=== PATIENT | female | born 1975 | race Caucasian/White ===

== ENCOUNTER 2016-08-04 14:55 | Inpatient (IN) | payer BC ==
[~2016-08-04] VITALS: Ht 167.6 cm; Wt 61.7 kg
[~2016-08-04 14:55] MED LIST: ADDERALL20 MG PO; ASPI325T6 PO; CELEBREX 200MG200 MG PO; COLACE 100100 MG/CAP PO; FERROUS SU325 MG/TAB PO; LEVAQUIN 5500 MG/TA1 PO; NORCO 325 MG-7.1 TAB PO; PRILOSEC 20MG20 MG PO; THERAGRAN1 TA1 PO
[2016-10-13] MEDS ORDERED: DESYREL DIVIDO150 M1 PO (09:40)
[2016-10-13] MEDS ORDERED: VENTOLIN0.09 MG IH (09:41)
[2016-10-13] MEDS ORDERED: NUVARING VAG RING VG (09:41)
[2016-10-24] VITALS (10 sets, daily range): BP systolic 89–105; BP diastolic 49–87; PULSE 48–75; TEMP 98–98.1
[2016-10-25 00:21] VITALS: BP 105/60; PULSE 58; TEMP 97.5
[2016-10-25 03:51] VITALS: BP 103/53; PULSE 67; TEMP 97.4
[2016-10-25 07:13] LABS: HEMATOCRIT 30.2 % (37.0-47.0); HEMOGLOBIN 10.1 g/dl (12.5-16.0)
[2016-10-25 07:45] VITALS: BP 94/56; PULSE 65; TEMP 98.3
[2016-10-25 11:36] VITALS: BP 94/58; PULSE 67; TEMP 97.7
[2016-10-25 16:07] VITALS: BP 101/58; PULSE 63; TEMP 97.9
[2016-10-25 19:50] VITALS: BP 106/64; PULSE 77; TEMP 98.7
[2016-10-26 00:09] VITALS: BP 95/56; PULSE 76; TEMP 98.3
[2016-10-26 04:22] VITALS: BP 95/59; PULSE 84; TEMP 98.8
[2016-10-26 06:47] LABS: HEMATOCRIT 29.4 % (37.0-47.0); HEMOGLOBIN 9.8 g/dl (12.5-16.0)
[2016-10-26 07:39] VITALS: BP 89/48; PULSE 78; TEMP 97.6
[2016-10-26 11:31] VITALS: BP 93/60; PULSE 72; TEMP 97.5
[2016-10-26 15:31] VITALS: BP 99/55; PULSE 77; TEMP 97.5
[2016-10-26 19:38] VITALS: BP 90/45; PULSE 55; TEMP 97.5
[2016-10-27 00:22] VITALS: BP 90/55; PULSE 64; TEMP 98.3
[2016-10-27 04:28] VITALS: BP 97/59; PULSE 67; TEMP 98.5
[2016-10-27] MEDS ORDERED: NORCO 325 MG-7.1 TAB PO (07:06)
[2016-10-27] MEDS ORDERED: CELEBREX 200MG200 MG PO (07:06)
[2016-10-27] MEDS ORDERED: ASPI325T6 PO (07:06)
[2016-10-27] MEDS ORDERED: ROXICODONE 55 MG/TAB PO (07:07)
[2016-10-27] MEDS ORDERED: TYLENOL 500MG500 MG PO (07:08)
[2016-10-27] MEDS ORDERED: COLACE 100100 MG/CAP PO (07:08)
[2016-10-27 07:51] VITALS: BP 107/61; PULSE 86; TEMP 99.1
[2016-10-27 11:36] VITALS: BP 97/59; PULSE 77; TEMP 98.2
== END 2016-10-27 15:49 | disposition home or self-care (01) | DRG 470 ==
LOC: JCC 10-24 07:30
PROVIDERS: Orthopaedic Surgery
PROC: 0SR90JA Replacement of Right Hip Joint with Synthetic Substitute, Uncemented, Open Approach (ICD-10-PCS; principal; 2016-10-24 12:15)
DX: M16.11 Unilateral primary osteoarthritis, right hip (principal)
CPT/HCPCS: A4315; A9284; C1713; C1776; J0690; J1100; J2175; J2250; J2405; J2704; J3010; J7120

== ENCOUNTER → 2016-10-03 | Outpatient (REF) ==
[~2016-10-03] MED LIST changes: +DESYREL DIVIDO150 M1 PO; +NUVARING VAG RING VG; +ROXICODONE 55 MG/TAB PO; +TYLENOL 500MG500 MG PO; +VENTOLIN0.09 MG IH
== END ==
LOC: ZLAB.WCH 15:12
DX: Z01.89 Encounter for other specified special examinations (principal)

== ENCOUNTER → 2016-10-07 | Outpatient (CLI) | payer BC | LOC: COL.LAB 12:25 | DX: Z01.812 Encounter for preprocedural laboratory examination (principal); M25.851 Other specified joint disorders, right hip ==

== ENCOUNTER → 2016-11-17 | Outpatient (CLI) | payer BC | LOC: COL.LAB 15:46 | DX: R19.7 Diarrhea, unspecified (principal) ==

== ENCOUNTER 2017-12-26 20:29 | Emergency (ER) | payer BC ==
[~2017-12-26] VITALS: Ht 167.6 cm; Wt 60.0 kg
[2017-12-26] MEDS ORDERED: ZYRTEC 10MG10 MG PO (21:13)
[2017-12-26 21:35] VITALS: BP 123/76; PULSE 77; TEMP 97.9
== END 2017-12-26 21:04 | disposition home or self-care (01) ==
LOC: COL.ER 20:29
DX: S61.012A Laceration without foreign body of left thumb without damage to nail, initial encounter (principal); K21.9 Gastro-esophageal reflux disease without esophagitis; F98.8 Other specified behavioral and emotional disorders with onset usually occurring in childhood and adolescence; W26.0XXA Contact with knife, initial encounter; Y92.009 Unspecified place in unspecified non-institutional (private) residence as the place of occurrence of the external cause

== ENCOUNTER → 2018-12-12 | Outpatient (CLI) | payer BC ==
[~2018-12-12] MED LIST changes: +ZYRTEC 10MG10 MG PO
== END ==
LOC: MC.RAD 08:39
DX: Z12.31 Encounter for screening mammogram for malignant neoplasm of breast (principal); Z98.82 Breast implant status

== ENCOUNTER → 2020-11-27 | Outpatient (CLI) | payer BC | LOC: MC.RAD | DX: Z12.31 Encounter for screening mammogram for malignant neoplasm of breast (principal); Z98.82 Breast implant status ==

== ENCOUNTER → 2022-01-21 | Outpatient (CLI) | payer BC | LOC: MC.RAD 08:15 | DX: Z12.31 Encounter for screening mammogram for malignant neoplasm of breast (principal) ==

== ENCOUNTER → 2022-01-27 | Outpatient (CLI) | payer BC | LOC: MC.RAD 13:00 | DX: N60.02 Solitary cyst of left breast (principal) ==

== ENCOUNTER → 2023-01-24 | Outpatient (CLI) | payer BC | LOC: MC.RAD 09:00 | DX: Z12.31 Encounter for screening mammogram for malignant neoplasm of breast (principal) ==

== ENCOUNTER → 2024-04-24 | Outpatient (CLI) | payer BC ==
[~2024-04-24] MED LIST changes: +CIPRO 500MG TA500 MG PO; +DESYREL 100MG100 MG PO; -DESYREL DIVIDO150 M1 PO; +FLAGYL 250250 MG/TAB PO; +FLONASEALLERGY NS; +KLONOPIN 0.5MG0.5 MG PO; +LEXAPRO 10MG10 MG PO; +MULTI VITAMINS1 TAB PO; +OMEGA-3 1000 MG1 CAP PO; +PERCOCET 325 MG1 TA2 PO; +PREMIER DRAINA MC; +PROMETRIUM100 MG; +RT ADVAIR 228 DISKUS IH
== END ==
LOC: MC.RAD 07:56
DX: Z12.31 Encounter for screening mammogram for malignant neoplasm of breast (principal); R92.0 Mammographic microcalcification found on diagnostic imaging of breast

== ENCOUNTER → 2024-05-15 | Outpatient (CLI) | payer BC | LOC: MC.RAD 06:57 | DX: R92.1 Mammographic calcification found on diagnostic imaging of breast (principal) | CPT/HCPCS: A4648 ==

== ENCOUNTER → 2024-07-29 | Outpatient (CLI) | payer BC ==
[~2024-07-29] MED LIST changes: +Iohexol 300 - 10 ML VIAL IV ONE; +Triamcinolone 40 MG/ML 1 ML VIAL IJ ONE
== END ==
LOC: COL.RAD 07:30
DX: M79.671 Pain in right foot (principal)
CPT/HCPCS: J0665; J3301; Q9967